=== PATIENT | male | born 1980 | race Caucasian/White ===

== ENCOUNTER 2023-01-06 20:00 | Outpatient (CLI) | payer OTHER, SELFPAY | END 2023-01-06 20:01 | disposition home or self-care (01) | LOC: SLEEP 01-07 15:13 | PROVIDERS: PCP Family Medicine; Visit Provider Family Medicine | DX: G47.33 Obstructive sleep apnea (adult) (pediatric) (principal) | CPT/HCPCS: 95810; 95811 ==